=== PATIENT | female | born 1945 | race Caucasian/White ===

== ENCOUNTER → 2017-01-20 | Day surgery (SDC) | payer MEDICARE, OTHER ==
[~2017-01-20] MED LIST: ASPI1TAB7 PO; BUPIVACAINE/EPINEPHRINE 0.5% 50 ML VIAL ONE; ESTR.3 PO; IBUP600T26 PO; ISOSULFAN BLUE 50 MG/5 ML VIAL SQ ONE; LACTATED RINGER'S 1,000 ML BAG IV ONE; LACTATED RINGER'S 1000 ML INJ 1,000 ML ONE; LISI-587 PO; METO25 PO; MIDAZOLAM HCL 2 MG/2 ML VIAL ONE; NEOMYCIN/POLYMYXIN/BACITRACIN OINT 15 GM TUBE ONE; ONDANSETRON HCL 4 MG/2 ML VIAL IV PUSH ONE; PROPOFOL 200 MG/20 ML AMP IV ONE; TAB-TAB PO; ceFAZolin 2 GM PREMIX 50 ML ONE
--- NOTE | 2017-01-20 14:08 | TN ---
cc: LANA BUTLER M.D. DATE OF SURGERY: 01/20/2017 PREOPERATIVE DIAGNOSIS Invasive well-differentiated ductal carcinoma, right breast. POSTOPERATIVE DIAGNOSIS Invasive well-differentiated ductal carcinoma, right breast. PROCEDURE PERFORMED 1. Needle-localized right breast lumpectomy. 2. Injection and excision right axillary sentinel lymph node x2. 3. Placement and removal of intraoperative radiation therapy device 4.0 cm. SURGEON Lana Butler MD [employer] VALENTINO Sidhu RADIATION THERAPIST Dr. Samir Garcia MD ANESTHESIA General endotracheal. COMPLICATIONS None. INDICATION FOR PROCEDURE Ms. Abdullahi is a pleasant 71-year-old female who is noted to have a small right breast cancer. By imaging this was less than a centimeter. The patient was seen, evaluated and offered needle-localized lumpectomy and sentinel node excision versus mastectomy. The patient elected to have a needle-localized lumpectomy. She also requested intraoperative radiation therapy. She was seen by Dr. Samir Garcia who agreed with the assessment that she was a candidate for intraoperative radiation therapy. Risks and benefits of all procedures were discussed with her and she was agreeable. INTRAOPERATIVE FINDINGS Two sentinel lymph nodes were identified. [place] node #1 was blue and had a 10-second count of 482, sentinel node #2 was also blue and had a 10-second count of 821. The sizer used for the intraoperative radiation therapy was a 4.0 cm. Treatment time was [address] Garcia's dictation for the details of the radiation therapy. DETAILS OF PROCEDURE The patient was identified, brought to the operating room and placed supine on the operating table. After adequate general anesthesia was achieved with LMA, the anterior chest and right axilla was prepped and draped in standard surgical fashion. 5 ccs of isosulfan blue was injected in the periareolar position as well as along the wire localization site in the upper central right breast. Attention was first directed to the right axilla. The approximate location of sentinel node was identified with the probe. 0.25% Marcaine was injected and a longitudinal skin line incision was then made. Dissection proceeded into the subcutaneous tissue immediately identifying an enlarged blue node. This was grasped with Allis clamp and dissected from surrounding tissue using electrocautery Bovie. This node was checked and found to have a 10-second count of 482 and was labeled sentinel node number one. Adjacent to this node was also a second node. It was also blue and enlarged. It was grasped with Allis clamp and dissected from the surrounding tissue using electrocautery Bovie. It was excised and found to have a 10-second count of 821. This was labeled sentinel node #2. Once these two nodes were excised there was no other blue nodes noted within the axilla. Using the probe there was no significant activity noted with the probe. By direct palpation I could not palpate any enlarged nodes. Therefore, we terminated the axillary portion of the procedure. Wound was irrigated out with normal saline solution and then injected with additional local anesthetic and closed in two layers using a 3-0 and 4-0 Vicryl. Sterile dressings were applied. Now attention was directed to the right breast. In the right breast the patient had a wire localization from a superior approach in the upper central right breast. Site was selected just below the wire and 0.25% Marcaine was injected. A fay areolar semilunar incision was then made. Subcutaneous tissue was dissected with electrocautery Bovie. The wire was then transected and brought into the operative wound. Wire was then followed down to its base with generous margins in all directions using electrocautery Bovie. The specimen was then excised. The specimen was palpated and a mass was noted to be in the central portion of the specimen. The only margin that appeared to be close was the deep and medial margin. We therefore went ahead and resected a deep and medial margin using electrocautery Bovie. Specimen was sent to radiology where Dr. Antonia Hoyt called back and stated the clip and the mass were present within the specimen. At this point the wound was copiously irrigated with normal saline solution. Attention was now directed to the intraoperative radiation therapy portion of the case. The sizers were brought up and 3.5 was put in and was felt to be a little bit loose and therefore we used a 4.0 cm IORT probe. The probe was then engaged into the radiation machine and brought into the operative wound. It was placed in the central portion after we first put a #1 Prolene stay suture circumferentially around the breast tissue. The Prolene pursestring was then tightened around the probe. The skin edges were not touching the probe in any location. By direct ultrasound all four quadrants to the probe were measured. The closest margin was the inferior margin and this was 75 mm. All other margins were approximately 80-90 mm. The breast tissue was noted to be directly opposed to the probe circumferentially. At this point the pursestring suture was tied down. A moist laparotomy pad was placed on the skin where the probe entered the skin. The lead fuller were then placed around the probe. At this point Dr. Garcia assumed care of the patient and provided intraoperative radiation for approximately 25 minutes. Once he completed that we reentered the room. The pursestring suture was cut and the probe was safely removed. Wound was copiously irrigated with normal saline solution and then closed in two layers using 3-0 and 4-0 Vicryl. Lumpectomy cavity was filled with 10 ccs of 0.25% Marcaine. The patient tolerated the procedure well, was awakened and brought to recovery in stable condition. Please note the MANAGER [employer]UDY hospital nursing assistant was medically necessary due to her specialized surgical skills and knowledge of my surgical technique. She was present and scrubbed for the entire procedure. MD STEPH Mart/CHERELLE /1:38 PM /1:49 PM THU
--- NOTE | 2017-01-26 10:09 | RADONCENDT ---
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 without complications FOLLOW UP PLAN: Patient to be seen in 6 weeks. Samir Brandon MD 01/26/2017 10:09:23 AM This report was verified and signed electronically [facility] [address] [place] [address] RADIATION ONCOLOGY END OF TREATMENT SUMMARY Date: 01/20/2017 Patient Name: Tomeka Snyder Date of : 1945 Age: 71 Sex: Female
== END | disposition home or self-care (01) ==
LOC: ESDC 06:32
PROVIDERS: ATTEND Surgery Trauma Surgery
DX: C50.911 Malignant neoplasm of unspecified site of right female breast (principal)
CPT/HCPCS: 00400; 01610; 19125; 38525; 38792; 77290; 77300; 77334; 77370; 77424; 88307; J0690; J2250; J2405; J3010; J7120; Q9968; 77469; 88377